=== PATIENT | female | born 1985 | race Caucasian/White ===

== ENCOUNTER 2016-12-25 12:30 | Emergency (ER) | payer OTHER ==
[2016-12-25] MEDS ORDERED: DICYCLOMINE 10 MG CAP PO ONE (13:13)
[2016-12-25] MEDS ORDERED: PANTOPRAZOLE SODIUM 40 MG VIAL IVP ONE (13:13)
[2016-12-25] MEDS ORDERED: NS 1,000 ML IV ONE (13:13)
--- NOTE | 2016-12-25 14:46 | EDPHY ---
H & P Stated Complaint: RUQ tendernessx 5days,assoc w/nausea;some labs done this morning Source: Patient, Old records Exam Limitations: No limitations - Personal History LMP (Females 10-55): IUD In Place Current Tetanus Diphtheria and Acellular Pertussis (TDAP): Yes - Medical/Surgical History Other PMH: healthy - Social History Smoking Status: Never smoked HPI/ROS: CHIEF COMPLAINT: Right upper quadrant pain, abnormal labs HISTORY OF PRESENT ILLNESS: Patient complains of several days duration of right upper quadrant epigastric abdominal pain. Gradual onset. Constant duration. It does wax and wane. It is worse postprandial. No fever or chills. She has seen by her primary care physician yesterday with laboratory studies ordered. These were not performed until this morning. She was then contacted by the primary care physician as she did have some elevation of some of her liver enzymes. She also had persistent pain in the epigastrium. She has attempted liquid intake but becomes nauseated with occasional vomiting. She has also attempted a milder diet including rice, toast and fruit. This has not helped her symptoms. Primary care physician has been treating her with Prilosec and nausea medications with minimal improvement. No other associated complaints or modifying factors. REVIEW OF SYSTEMS: Ten systems reviewed and are negative unless otherwise noted in the HPI PAST MEDICAL HISTORY: None SOCIAL HISTORY: Patient lives here in [place]. 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 [place] FAMILY HISTORY: Noncontributory EXAMINATION General Appearance: Alert, no distress Head: normocephalic, atraumatic Eyes: Pupils equal and round, no conjunctival pallor or injection ENT, Mouth: Mucous membranes moist Neck: Normal inspection, supple, non-tender Respiratory: Lungs are clear to auscultation Cardiovascular: Regular rate and rhythm Gastrointestinal: Abdomen is soft and nondistended. Mild right upper quadrant tenderness. Mild epigastric tenderness. No rigidity. No distention. No CVA tenderness. Benign abdominal examination Neurological: A&O, nonfocal, normal gait Skin: Warm and dry, no rash Extremities: Nontender, no pedal edema Psychiatric: Mood and affect normal DIFFERENTIAL DIAGNOSES: Including but not limited to gastritis, pancreatitis, cholecystitis, cholelithiasis, choledocholithiasis MDM: 1:15 p.m. Right upper quadrant epigastric abdominal pain for 5 days. This is primarily postprandial. There is some nausea. Some feeling of fatigue and weakness to her. Laboratory studies reveal a mild transaminitis. She has been sent here by primary care physician for further care and possible imaging. I have ordered ultrasound of the gallbladder. She is resting comfortably with a benign abdominal examination. I have also order urinalysis and mono test. 2:30 p.m. [place] test is negative. Urine sample just to be provided. Ultrasound is pending at this time. I re-evaluated her at this time and she is resting comfortably in no acute distress 3:30 p.m. Notified by radiologist Dr. Michelle. Ultrasound of the gallbladder is unremarkable for any acute findings. 4:00 p.m. I have re-evaluated the patient. She is resting comfortably. Minimal pain. She has received IV fluid in the ER. I have reviewed her laboratory studies from this morning. There is no leukocytosis. There is minimal transaminitis. There is no abnormality of the bilirubin, alkaline phosphatase or lipase. I suspect this is a gastritis and possibly a concomitant biliary dyskinesia. I will discharge her home with Carafate, Protonix, promethazine. She will contact the primary care physician in the morning for further workup and care. She is comfortable with this plan and discharged home stable condition. SUPERVISION: Shared visit with Dr. Pride ([facility]) Constitutional: Initial Vital Signs Temperature (C) 97.5 F 12/25/16 12:35 Heart Rate 88 12/25/16 12:35 Respiratory Rate 18 12/25/16 12:35 Blood Pressure 127/104 H 12/25/16 12:35 O2 Sat (%) 99 12/25/16 12:35 O2 Delivery Mode Room Air Allergies/Adverse Reactions: emycin Allergy (Mild, Uncoded 12/25/16 12:39) n/v Home Medications: Medication Instructions Recorded Levonorgestrel [Mirena] 1 each IY 12/25/16 Omeprazole [Prilosec 20 mg] 20 mg PO DAILY 12/25/16 Ondansetron Odt [Zofran Odt 4 mg 4 mg PO Q4 12/25/16 (*)] Pantoprazole Sodium [Protonix 40mg 40 mg PO DAILY #30 tab 12/25/16 (*)] Promethazine HCl [Phenergan 25mg 25 mg PO Q8 PRN #12 tab 12/25/16 (*)] Sucralfate [Carafate Suspension] 100 mg PO BID PRN #1 btl 12/25/16 Medical Decision Making - Diagnostics Imaging Results: Imaging Impressions Abdomen Ultrasound 12/25/16 13:14 Impression: Normal right upper quadrant ultrasound. Findings discussed with Otis Mccann at 15:26 hour, 12/25/2016. ED Course/Re-evaluation: The patient was evaluated and managed by the physician's assistant chief engineer. My cosignature indicates that I reviewed the chart and I agree with the findings and plan of care as documented. I am the secondary supervising physician. ( Yoly Pride) - Data Points Laboratory Results: 12/25/16 12/25/16 12/25/16 15:15 13:25 13:25 Beta HCG, Qual NEGATIVE Urine Color YELLOW Urine Appearance CLEAR Urine pH 5.0 (5.0-7.5) Ur Specific [place] 1.006 (1.002-1.030) Urine Protein NEGATIVE (NEGATIVE) Urine Ketones NEGATIVE (NEGATIVE) Urine Blood 1+ H (NEGATIVE) Urine Nitrate NEGATIVE (NEGATIVE) Urine Bilirubin NEGATIVE (NEGATIVE) Urine Urobilinogen NEGATIVE EU EU (0.2-1.0) Ur Leukocyte Esterase NEGATIVE (NEGATIVE) Urine RBC 1-3 /hpf /hpf (0-3) Urine WBC 1-3 /hpf /hpf (0-3) Ur Epithelial Cells TRACE /lpf /lpf (NONE-1+) Urine Bacteria 2+ /hpf H /hpf (NONE SEEN) Urine Mucus TRACE /lpf /lpf (NONE-1+) Urine Glucose NEGATIVE (NEGATIVE) Monoscreen NEGATIVE (NEGATIVE) Medications Given: Discontinued Medications Dicyclomine HCl (Bentyl) 20 mg PO EDNOW ONE Stop: 12/25/16 13:14 Last Admin: 12/25/16 13:42 Dose: 20 mg Sodium Chloride (Ns) 1,000 mls @ 0 mls/hr IV ONCE ONE; Wide Open PRN Reason: Protocol Stop: 12/25/16 13:14 Last Admin: 12/25/16 13:42 Dose: 1,000 mls Pantoprazole Sodium (Protonix) 40 mg IVP EDNOW ONE Stop: 12/25/16 13:14 Last Admin: 12/25/16 13:43 Dose: 40 mg Departure - Departure Disposition: Home, Routine, Self-Care Clinical Impression: Transaminitis Gastritis Qualifiers: Gastritis type: unspecified gastritis Chronicity: acute Gastritis bleeding: without bleeding Qualified Code(s): K29.00 - Acute gastritis without bleeding Nausea & vomiting Qualifiers: Vomiting type: unspecified Vomiting Intractability: non-intractable Qualified Code(s): R11.2 - Nausea with vomiting, unspecified Condition: Good Instructions: Gastritis (ED), Acute Nausea and Vomiting (ED) Additional Instructions: 1. Medications as prescribed as needed 2. Clear liquid diet for the next 1-2 days 3. Follow up with primary care physician tomorrow for further care 4. Return to ER for worsening symptoms, intractable vomiting, fever Referrals: Kelsie Forde MD [Primary Care Provider] - As per Instructions Prescriptions: Pantoprazole Sodium [Protonix 40mg (*)] 40 mg PO DAILY #30 tab Promethazine HCl [Phenergan 25mg (*)] 25 mg PO Q8 PRN #12 tab PRN Reason: Nausea/Vomiting, Use 1st Sucralfate [Carafate Suspension] 100 mg PO BID PRN #1 btl PRN Reason: Pain, Mild
[2016-12-25 15:48] LABS: COLOR YELLOW; LEUKOCYTE ESTERASE,URINE NEGATIVE (NEGATIVE); NITRITE,URINE NEGATIVE (NEGATIVE)
[2016-12-25 15:51] LABS: BACTERIA 2+ /hpf (NONE SEEN); MUCUS TRACE /lpf (NONE-1+)
[2016-12-25 16:36] VITALS: RESP 16
[2016-12-25 16:38] VITALS: BP 120/71; PULSE 86; TEMP 97.7; O2SAT 96
== END 2016-12-25 16:39 | disposition home or self-care (01) ==
DX: K29.00 Acute gastritis without bleeding (principal); R11.2 Nausea with vomiting, unspecified; R74.0 Nonspecific elevation of levels of transaminase and lactic acid dehydrogenase [LDH]
CPT/HCPCS: 96374

== ENCOUNTER → 2017-05-29 | Outpatient (CLI) | payer OTHER ==
[~2017-05-29] MED LIST: GADOBUTROL 10 ML VIAL IVP ONE; IOPAMIDOL (ISOVUE 370) 100 ML BTL IV ONE; LIDOCAINE 1% 300 MG/30 ML SDV ONE
== END ==
LOC: FIMAGING 10:36
PROC: 3E0U3HZ Introduction of Radioactive Substance into Joints, Percutaneous Approach (ICD-10-PCS; principal; 2017-05-29)
DX: M25.552 Pain in left hip (principal); M76.02 Gluteal tendinitis, left hip; M70.62 Trochanteric bursitis, left hip
CPT/HCPCS: A9585; Q9967